=== PATIENT | male | born 1950 | race Caucasian/White ===

== ENCOUNTER → 2019-09-06 12:20 | Day surgery (SDC) | payer MEDICARE ==
[~2019-09-06 12:20] MED LIST: Atropine 1MG/ML INJ* 1 ML VIAL ONE; Buffered Lidocaine 1% SYRIN* 1 ML/SYRINGE INTRADERM ONE; Bupivacaine 0.25% EPI 200,000* 30 ML SDV ONE; Bupivacaine 0.25% SDV* 30 ML ONE; Dexamethasone IV* 4 MG/ML 1 ML (4 MG) ONE; DiMENhydriNATE IV* 50 MG/ML VIAL IV PUSH PRN; EPINEPHRINE 1 MG/ML 1 ML VIAL ONE; Glycopyrrolate IV* 0.2 MG/ML 1 ML VIAL ONE; HYDROmorphone INJ1* 1 MG/ML SYRINGE IV PRN; Ketorolac INJ* 30 MG/ML 1 ML VIAL ONE; Lactated Ringers 1000 ML Bag* 1,000 ML IV SCH; Lidocaine 2% PF * 5 ML VIAL ONE; Metoclopramide IV* 5 MG/ML 2 ML VIAL ONE; Midazolam* 1 MG/ML 2 ML VIAL (2 MG) ONE; Naloxone* 0.4 MG/ML 1 ML VIAL IV PRN; Ondansetron INJ* 2 MG/ML VIAL ONE; Phenylephrine 10 MG/ML VIAL* 1 ML VIAL ONE; Propofol* 10 MG/ML 20 ML BTL ONE; Rocuronium* 10 MG/ML VIAL ONE; ceFAZolin 2 GM PREMIX in ORs 2 GM/50 ML BAG ONE; fentaNYL* 50 MCG/ML 2 ML VIAL (100 MCG VIAL) ONE; oxyCODONE TAB* 5 MG TAB PO PRN
[2019-09-06 19:14] VITALS: BP 123/87
--- NOTE | 2019-09-06 22:30 | OP ---
DATE OF OPERATION: 09/06/19 - [facility] DATE OF : 46 SURGEON: Richard Jules MD BUFFER NICKEL: Kyleigh Patten RPA ANESTHESIA: Regional and general. PRE-OP DIAGNOSIS: Right shoulder rotator cuff tear. POST-OP DIAGNOSES: 1. Right shoulder rotator cuff tear. 2. Right shoulder labral tear OPERATIVE PROCEDURE: 1. Right shoulder arthroscopy 2. Rotator cuff repair. 3. Labral repair. 4. Decompression. ESTIMATED BLOOD LOSS: Less than 50 cc. COMPLICATIONS: None. SUMMARY: Mr. Cox is a 69-year-old male who in April [place] in [place]. He had wiped out and since then has been having troubles with right shoulder pain. He had been treated conservatively, but has failed to progress and did undergo an MRI which showed a very specific tear of his rotator cuff. I discussed with him that a rotator cuff repair should work well to decrease his pain and improve his function. He had previously undergone a left shoulder rotator cuff tear with me and has done well from that. Risks of surgery such as infection, scar formation, stiffness, continued pain and nonhealing of the repair with some of the risks discussed. He had wished to proceed. DESCRIPTION OF PROCEDURE: The patient had a block placed in the holding area and was brought back to the OR. General endotracheal anesthesia was established. He was then sat up in a beach chair position. Care was taken to make sure that the head of loss prevention did not impinge upon his ears and then his left arm was nicely abducted on the arm board with the cubital tunnel being free and clear. Right shoulder area was prepped and then draped. Portal sites were preinjected using 0.25% Marcaine with epinephrine and a standard posterior portal was made first using an #11 blade. Blunt trocar with the sheath was easily introduced into the shoulder and a camera was introduced into the sheath. Shoulder was allowed to insufflate. On pulling back, quite a bit of wear was seen within the shoulder. Pictures were taken. Under direct vision, anterolateral portal was made and I had used his rotator cuff tear as the entry way. Shaver was used to gently debride and clean up the shoulder as he had quite the labral tear. Labrum was detached from about the 12:30 position to about the 2:30 position. Unfortunately, with a good angle for his rotator cuff , this was not a good angle for his labrum and standard anterior portal was then made. Port was then inserted and shaver was used through the spot to scuff the bone as well as underside of labrum. Once this was nicely abraded to encourage some healing, a 3.5 anchor was placed into the corner of his glenoid. Labrum was then sewn down and a nice solid repair was obtained. Shoulder joint was exited and subacromial space was entered. Bursa was taken down and a gentle decompression was also performed. From the top side here, I was also able to clean up edge of his rotator cuff as well as the old footprint where he had torn away. The 3.5 anchor was then placed into the old footprint and [employer] was used to pass the stitch through his rotator cuff. Nice bite was obtained and rotator cuff was sewn down nicely. Pictures were taken afterwards and we have seen how it was closed down and rotator cuff was reapproximated. Shoulder joint was then exited and portal sites were repaired. Sterile dressing and shoulder immobilizer were applied in the OR. The patient brought his Cryo/Cuff from his left rotator cuff repair, so we will use the one he already had been given. He was then extubated in the OR and was stable on transfer to the recovery room. DISPOSITION/DISCHARGE SUMMARY: Mr. Cox was a 69-year-old male who just underwent a right shoulder arthroscopy, rotator cuff repair and labral repair. He tolerated the procedure well and there were no complications. He is currently rolling towards the recovery room. Once he wakes a bit more from his general anesthesia, can tolerate p.o., has his pain well controlled and he can void, he will be discharged home. Prescription for Homer was e-scribed into the hospital pharmacy so that his could pick it up during the surgery. He has instructions to keep his dressing clean, dry and intact for the next 3 days , but after that may take his dressing down, cover sutures with bandage, may shower, wash, and get it wet, but should not soak it. I would like to see him in the office in approximately 10 days to remove the sutures and continue him with his moving restrictions for another 3 weeks. I would like to see him in the office at that point, take him through range of motion and start him with physical therapy. If there are any problems or if anything odd should occur, there are instructions to give the office a call. [id number]/[facility] #: [id number] ZBIGNIEW
== END | disposition home or self-care (01) ==
LOC: OR 12:20
PROVIDERS: ATTEND Orthopaedic Surgery
DX: S46.011A Strain of muscle(s) and tendon(s) of the rotator cuff of right shoulder, initial encounter (principal); S43.431A Superior glenoid labrum lesion of right shoulder, initial encounter; W20.8XXA Other cause of strike by thrown, projected or falling object, initial encounter; Y92.832 Beach as the place of occurrence of the external cause; G89.18 Other acute postprocedural pain; G47.33 Obstructive sleep apnea (adult) (pediatric); I10 Essential (primary) hypertension
CPT/HCPCS: C1713; J0461; J0690; J1100; J1885; J2250; J2405; J2704; J2765; J3010; J3490